=== PATIENT | female | born 1985 | race Two or more races ===

== ENCOUNTER 2019-09-09 11:50 | Outpatient (CLI) | payer OTHER | END 2019-09-10 10:09 | disposition home or self-care (01) | LOC: OBS/DEL 11:50 | DX: O47.1 False labor at or after 37 completed weeks of gestation (principal) ==

== ENCOUNTER 2019-09-12 14:16 | Inpatient (IN) | payer OTHER ==
[~2019-09-12] VITALS: Ht 152.4 cm; Wt 66.2 kg
[2019-09-12] MEDS ORDERED: PROGESTERO50 MG/1 M1 IM (16:16)
[2019-09-12] MEDS ORDERED: PRENATAL TABLE1 EAC1 PO (16:16)
== END 2019-09-14 16:31 | DRG 798 ==
LOC: LDR 14:16 → OB/GYN 14:16
PROVIDERS: ADMIT Obstetrics & Gynecology
PROC: 10E0XZZ Delivery of Products of Conception, External Approach (ICD-10-PCS; principal; 2019-09-12)
PROC: 0KQM0ZZ Repair Perineum Muscle, Open Approach (ICD-10-PCS; 2019-09-12)
PROC: 4A1HXCZ Monitoring of Products of Conception, Cardiac Rate, External Approach (ICD-10-PCS; 2019-09-12)
PROC: 4A033R1 Measurement of Arterial Saturation, Peripheral, Percutaneous Approach (ICD-10-PCS; 2019-09-12)
PROC: 0UB70ZZ Excision of Bilateral Fallopian Tubes, Open Approach (ICD-10-PCS; 2019-09-13)
DX: O70.1 Second degree perineal laceration during delivery (principal); Z37.0 Single live birth; Z22.330 Carrier of Group B streptococcus; Z3A.38 38 weeks gestation of pregnancy; Z30.2 Encounter for sterilization